=== PATIENT | female | born 1990 | race Two or more races ===

== ENCOUNTER 2021-12-25 22:06 | Emergency (ER) | payer MEDICAID ==
[~2021-12-25] VITALS: Ht 175.3 cm; Wt 68.0 kg
[2021-12-25 22:06] VITALS: BP 145/85
== END 2021-12-25 22:34 | disposition left against medical advice (07) ==
LOC: ER 22:06
DX: E11.65 Type 2 diabetes mellitus with hyperglycemia (principal)